=== PATIENT | male | born 1960 ===

== ENCOUNTER 2020-09-11 15:48 | Outpatient (CLI) | payer MEDICARE, BC | END 2020-09-11 15:49 | disposition home or self-care (01) | LOC: SLR 15:48 | PROVIDERS: ATTEND Specialist | DX: G47.33 Obstructive sleep apnea (adult) (pediatric) (principal) | CPT/HCPCS: 95810 ==

== ENCOUNTER 2020-10-30 11:00 | Outpatient (CLI) | payer MEDICARE, BC | END 2020-10-30 11:01 | disposition home or self-care (01) | LOC: SLR 11:00 | PROVIDERS: ATTEND Specialist | DX: G47.33 Obstructive sleep apnea (adult) (pediatric) (principal) | CPT/HCPCS: 95811 ==